=== PATIENT | male | born 1960 | race Hispanic/Latino ===

== ENCOUNTER 2016-11-05 10:59 | Emergency (ER) | payer OTHER ==
[~2016-11-05] VITALS: Ht 165.1 cm; Wt 70.0 kg
[~2016-11-05 10:59] MED LIST: ASPIRIN325 MG OR; FLEXERIL PO; NAPROSYN500 MG PO; NEXIUM20 M1 OR
[2016-11-05] MEDS ORDERED: NAPROSYN500 MG PO (13:32)
[2016-11-05 14:01] VITALS: BP 133/79
== END 2016-11-05 14:01 | disposition home or self-care (01) | DRG 563 ==
LOC: ED 10:59
DX: S39.012A Strain of muscle, fascia and tendon of lower back, initial encounter (principal); M47.816 Spondylosis without myelopathy or radiculopathy, lumbar region; W01.0XXA Fall on same level from slipping, tripping and stumbling without subsequent striking against object, initial encounter; Y92.89 Other specified places as the place of occurrence of the external cause

== ENCOUNTER 2019-07-28 09:14 | Observation (INO) | payer BC ==
[~2019-07-28] VITALS: Ht 165.1 cm; Wt 70.3 kg
[2019-07-28 09:36] LABS: HEMOGLOBIN 14.4 g/dl (14.0-18.0); IMMATURE GRANULOCYTES 0.2 % (0.0-5.0); MEAN CELL VOLUME 91.7 fL CALC (80.0-100.0); MEAN CORPUSCULAR HGB 30.7 pG CALC (26.0-32.0); MEAN CORPUSCULAR HGB CONC 33.5 g/L CALC (32.0-36.0); NEUT# 3.56 thou/uL (1.82-7.42); RED BLOOD COUNT 4.69 mill/uL (4.70-6.10); RED CELL DISTRI WIDTH 11.9 % (11.5-15.5)
[2019-07-28 10:02] LABS: ANION GAP 12 (6-22 (CALC)); BUN 17 mg/dL (9-20); BUN/CREATININE RATIO 26 (12-20 (CALC)); CARBON DIOXIDE 26 mmol/l (22-30); CHLORIDE 107 mmol/l (95-108); CREATININE 0.7 mg/dL (0.7-1.3); GFR > 60 ML/MIN (>=60 (CALC)); GFR FOR AFR.AMER. > 60 ML/MIN (>=60 (CALC)); POTASSIUM 4.2 mmol/l (3.5-5.1); SODIUM 141 mmol/l (137-146)
[2019-07-28 11:25] VITALS: BP 120/75
[2019-07-28 14:30] VITALS: BP 121/74
[2019-07-28 19:01] VITALS: BP 124/76
[2019-07-28 23:26] VITALS: BP 119/73
[2019-07-29 04:02] VITALS: BP 104/54
[2019-07-29 06:20] LABS: CHOLESTEROL HDL RATIO 5.1 (<4.4 (CALC))
[2019-07-29 08:25] VITALS: BP 115/76
[2019-07-29 10:40] VITALS: BP 122/75
[2019-07-29] MEDS ORDERED: IBUPROFEN600 MG PO (13:01)
== END 2019-07-29 15:31 | disposition home or self-care (01) | DRG 313 ==
LOC: ED 09:14 → ED-I 10:20 → ED 10:36 → ED-I 10:37 → MS2 13:28
PROVIDERS: Family Medicine; Nurse Practitioner Family; ADMIT Internal Medicine; ATTEND Internal Medicine
DX: R07.9 Chest pain, unspecified (principal); S46.812A Strain of other muscles, fascia and tendons at shoulder and upper arm level, left arm, initial encounter; X58.XXXA Exposure to other specified factors, initial encounter
CPT/HCPCS: G0378